=== PATIENT | male | born 1975 | race Caucasian/White ===

== ENCOUNTER 2020-03-08 13:04 | Emergency (ER) | payer SELFPAY ==
[~2020-03-08] VITALS: Ht 167.6 cm; Wt 72.6 kg
[2020-03-08] MEDS ORDERED: Haloperidol 5mg/ml Inj IM ONE (13:15)
--- NOTE | 2020-03-08 13:21 | Emergency Room Report ---
History of Present Illness General Chief Complaint: Medical Clearance Source: Patient Present Illness HPI 44-year-old male with unknown underlying psychiatric disorder brought in by police [employer] for medical clearance. Patient is actively screaming and spitting all over and using derogatory language. Patient was pepper sprayed by the police. Minor abrasion and contusion noted on the face however patient denies any pain and does not recall how he got them. Patient repeatedly wants the handcuffs to be taken off. Patient allows washing the eyes. Denies chest pain, shortness of breath, headache and dizziness. Patient decided to escape the ED however was tackled by 2 police officers. Patient reports that he has no underlying psychiatric disorder and denies any drug use. Allergies: Coded Allergies: No Known Allergies (Unverified , 03/08/20) COVID-19 Screening Contact w/high risk pt: No Recent Travel to affected area: No Experienced COVID-19 symptoms?: No COVID-19 Testing performed MARRIAGE PERFORMER: No Patient History Past Medical History: see triage record Past Surgical History: unable to obtain Pertinent Family History: unable to obtain Immunizations: UTD Reviewed Nursing Documentation: PMH: Agreed; PSxH: Agreed Nursing Documentation-PMH Past Medical History: No Stated History Review of Systems All Other Systems: negative except mentioned in HPI Physical Exam Sp02 EP Interpretation: reviewed, normal General Appearance: no apparent distress, alert, GCS 15, non-toxic Head: normocephalic, atraumatic Eyes: bilateral eye PERRL, bilateral eye other - conjunctivitis post pepper spray ENT: hearing grossly normal, normal pharynx, no angioedema, normal voice Neck: full range of motion, supple/symm/no masses Respiratory: chest non-tender, lungs clear, normal breath sounds, no rhonchi, no wheezing, speaking full sentences Cardiovascular #1: regular rate, rhythm, no edema Genitourinary: no CVA tenderness Musculoskeletal: back normal, no calf tenderness, other - facial contusion left maxilla Neurologic: alert, motor strength/tone normal, oriented x3, sensory intact, responsive, speech normal Psychiatric: judgement/insight normal, memory normal, mood/affect normal, no suicidal/homicidal ideation Skin: no rash, abrasion - left maxilla Lymphatic: normal inspection, no adenopathy Medical Decision Making PA Attestation All diagnoses and treatment plans were reviewed and discussed with my supervising physician Dr. Salcedo Diagnostic Impression: Primary Impression: Medical clearance for incarceration Additional Impressions: Toxic effect of pepper spray Facial contusion Facial abrasion ER Course 44-year-old male with unknown underlying psychiatric disorder brought in by police [employer] department for medical clearance. Patient is actively screaming and spitting all over and using derogatory language. Patient was pepper sprayed by the police. Minor abrasion and contusion noted on the face however patient denies any pain and does not recall how he got them. Patient repeatedly wants the handcuffs to be taken off. Patient allows washing the eyes. Denies chest pain, shortness of breath, headache and dizziness. Patient decided to escape the ED however was tackled by 2 police officers. Patient reports that he has no underlying psychiatric disorder and denies any drug use. Ddx considered but are not limited to: bacterial conjunctivitis, allergic conjunctivitis, viral conjunctivitis, periorbital cellulitis, global trauma Vital signs: are WNL, pt. is afebrile H&PE are most consistent with: Medical clearance, conjunctivitis secondary to pepper spray, abrasion and contusion left side of the maxilla ORDERS: none required at this time, the diagnosis is clinical ED INTERVENTIONS: Eyes were washed with soap and water, Haldol 5 mg IM DISCHARGE: At this time pt. is stable for d/c to home. Will provide printed patient care instructions, and any necessary prescriptions. Care plan and follow up instructions have been discussed with the patient prior to discharge. Patient was medically cleared For splint patient follow primary doctor at this time patient is alert for any further evaluation. Patient stable at time of discharge. Disposition: LAW ENFORCEMENT IN CUST Condition: Stable Patient Instructions: Pepper [place] Exposure Additional Instructions: Follow-up with primary doctor, if worsening symptoms return to the emergency room Catracho Penaloza Mar 08, 2020 13:21
--- NOTE | 2020-03-08 13:25 | NUR ---
ED Nurse Note: pt very agitated and hostile in [place] [employer] custody. meds given.
[2020-03-08 13:30] VITALS: BP 137/85
--- NOTE | 2020-03-08 13:31 | NUR ---
ED Nurse Note: Pt cleared by health care Provider for discharge. DC instructions was given and explained to pt and verbalized understanding of teachings. All medical devices such as ID band removed. Pt is AAO x4, ambulatory and left with all personal belongings. pt d/c into [place] [employer] custody , medically cleared per
== END 2020-03-08 13:31 ==
LOC: EMR 13:22
DX: S00.83XA Contusion of other part of head, initial encounter (principal); S00.81XA Abrasion of other part of head, initial encounter; T65.894A Toxic effect of other specified substances, undetermined, initial encounter; X58.XXXA Exposure to other specified factors, initial encounter; Y92.9 Unspecified place or not applicable
CPT/HCPCS: 96372; 99283; J1630